=== PATIENT | male | born 1980 | race Caucasian/White ===

== ENCOUNTER 2022-01-24 18:21 | Emergency (ER) | payer OTHER ==
[~2022-01-24] VITALS: Ht 182.9 cm; Wt 86.2 kg
[2022-01-24 18:32] VITALS: BP 132/89
--- NOTE | 2022-01-24 18:32 | NUR ---
BIBS C/O R SIDED BUTTOCKS PAIN AND SWELLING SINCE SUNDAY, SMALL AMOUNT PUS DRAINING NOTED TODAY. PAIN IS 5/10 ON PAIN SCALE. AWAITING ORDERS.
[2022-01-24] MEDS ORDERED: SULF1TAB48 PO (19:18)
--- NOTE | 2022-01-24 19:26 | NUR ---
Patient discharged to home in stable condition. Written and verbal after care instructions given. Patient verbalizes understanding of instruction.
== END 2022-01-24 19:27 | disposition home or self-care (01) ==
LOC: ER 18:21
DX: L02.31 Cutaneous abscess of buttock (principal)